=== PATIENT | male | born 1990 | race Caucasian/White ===

== ENCOUNTER 2021-09-30 12:35 | Emergency (ER) | payer SELFPAY ==
[2021-09-30 12:42] VITALS: BP 150/99
--- NOTE | 2021-09-30 13:42 | XRay Report ---
CHEST 2 VIEWS INDICATION / CLINICAL INFORMATION: cough. COMPARISON: None available. FINDINGS: SUPPORT DEVICES: None. HEART / MEDIASTINUM: No significant abnormality. LUNGS / PLEURA: No significant pulmonary or pleural abnormality. No pneumothorax. ADDITIONAL FINDINGS: No significant additional findings. IMPRESSION: 1. No acute findings. Signer Name: Clinton Watts MD Signed: 09/30/2021 1:37 PM Workstation Name: [id number]
--- NOTE | 2021-09-30 13:47 | Emergency Department Report ---
Minor Respiratory - HPI Chief Complaint: Upper Respiratory Infection Stated Complaint: FLU LIKE SYMPTOM Time Seen by Provider: 09/30/21 13:09 Minor Respiratory: Yes Sore Throat, Yes Able to Tolerate Fluids, Yes Cough, Yes Chest Pain, No Rhinorrhea, No Ear Pain, No Sick Contacts, No Hemoptysis, No Shortness of Breath, No Fever Other History: 31-year-old [place]ian male presents to the emergency room complaining of a cough with chest pain and sweating x2 days. Patient does admit to having a sore throat. He denies any fever chills no nausea no vomiting. He is unvaccinated for Covid. Has not been tested for Covid. States he tried [id number] cold medicine. Denies any body aches. Has not have a past medical history no known drug allergies currently takes no medicines on a daily basis. ED Review of Systems ROS: Stated complaint: FLU LIKE SYMPTOM Other details as noted in HPI Comment: All other systems reviewed and negative ENT: throat pain Respiratory: cough ED Past Medical Hx - Medications Home Medications: Home Medications Medication Instructions Recorded Confirmed Last Taken Type Promethazine Dm (Nf) [Phenergan DM 5 ml PO Q6H PRN #110 ml 09/30/21 Unknown Rx 6.25-15 mg/5 ml] Minor Respiratory Exam - Exam General: Vital signs noted. No distress. Alert and acting appropriately. HEENT: Yes Moist Mucous Membranes, No Pharyngeal Erythema, No Pharyngeal Exudates, No Rhinorrhea, No Conjuctival Injection, No Frontal Tenderness, No Maxillary Tenderness Ear: Neither TM Bulge, Neither TM Erythema, Neither EAC Pain, Neither EAC Discharge Neck: Yes Supple, No Adenopathy Lungs: Yes Good Air Exchange, No Wheezes, No Ronchi, No Stridor, No Cough, No Labored Respirations, No Retractions, No Use of Accessory Muscles, No Other Abnormal Lung Sounds Heart: Yes Regular, No Murmur Abdomen: Yes Normal Bowel Sounds, No Tenderness, No Peritoneal Signs Skin: No Rash, No Edema Neurologic: Alert and oriented, no deficits. Musculoskeletal: Unremarkable. ED Course Vital Signs 09/30/21 12:40 Temperature 99.3 F Pulse Rate 102 H Respiratory 18 Rate Blood Pressure 150/99 [Right] O2 Sat by Pulse 93 Oximetry ED Medical Decision Making - Radiology Data Radiology results: report reviewed My Comment(s) Study Comments [facility] [address] [place] [id number] XRay Report Signed Patient: YUMIKO PINEDA MR#: [id number] 94 : 1990 Acct:[id number] Age/Sex: 31 / M ADM Date: 09/30/21 Loc: ED Attending Dr: Ordering Physician: MALACHI AGUILAR Date of Service: 09/30/21 Procedure(s): XR chest routine 2V Accession Number(s): [id number] cc: MALACHI AGUILAR Fluoro Time In Minutes: CHEST 2 VIEWS INDICATION / CLINICAL INFORMATION: cough. COMPARISON: None available. FINDINGS: SUPPORT DEVICES: None. HEART / MEDIASTINUM: No significant abnormality. LUNGS / PLEURA: No significant pulmonary or pleural abnormality. No pneumothorax. ADDITIONAL FINDINGS: No significant additional findings. IMPRESSION: 1. No acute findings. Signer Name: Clinton Watts MD Signed: 09/30/2021 1:37 PM Workstation Name: [id number] Transcribed By: SB Dictated By: CLINTON WATTS MD Electronically Authenticated By: CLINTON WATTS MD Signed Date/Time: 09/30/211336 DD/ 36 TD/TT: - Medical Decision Making 31-year-old [place]ian male presents to the emergency room complaining of a cough with chest pain and sweating x2 days. Patient does admit to having a sore throat. He denies any fever chills no nausea no vomiting. He is unvaccinated for Covid. Has not been tested for Covid. States he tried [id number] cold medicine. Denies any body aches. Has not have a past medical history no known drug allergies currently takes no medicines on a daily basis. Chest x-ray has been ordered. Chest x-ray is negative for any acute abnormalities. Critical care attestation.: If time is entered above; I have spent that time in minutes in the direct care of this critically ill patient, excluding procedure time. ED Disposition Clinical Impression: URI (upper respiratory infection) Disposition: HOME / SELF CARE / HOMELESS Is pt being admited?: No Does the pt Need Aspirin: No Condition: Stable Instructions: Upper Respiratory Infection, Adult, [id number] Additional Instructions: Chest x-ray is negative for any acute abnormalities. I recommend Tylenol ibuprofen. Take cough medication as prescribed. Follow-up with a primary care provider I have listed 1 below for your convenience. La radiografa de trax es negativa para detectar anomalas agudas. Recomiendo ibuprofeno Tylenol. Hawley los medicamentos para la tos segn lo prescrito. Kim un seguimiento con un proveedor de atencin primaria que enumer a continuacin para ramirez conveniencia. Prescriptions: Promethazine Dm (Nf) [Phenergan DM 6.25-15 mg/5 ml] 5 ml PO Q6H PRN #110 ml PRN Reason: Cough Referrals: PRIMARY CAREMD [Primary Care Provider] - 3-5 Days NAVIN MIRELES MD [Staff Physician] - 3-5 Days Forms: Work/School Release Form(ED) Time of Disposition: 13:52 Print Language: [place]IZ[place]
== END 2021-09-30 13:58 | disposition home or self-care (01) ==
LOC: ED 12:35
DX: J06.9 Acute upper respiratory infection, unspecified (principal)
CPT/HCPCS: 71046; 99283